=== PATIENT | male | born 1940 | race Caucasian/White ===

== ENCOUNTER 2016-02-24 16:19 | Inpatient (IN) | payer MEDICARE, OTHER ==
[~2016-02-24] VITALS: Ht 172.7 cm; Wt 69.3 kg
[2016-02-24] MEDS ORDERED: DEXTROSE 50% SYRINGE 50 ML IV PRN (20:30)
[2016-02-24] MEDS ORDERED: ACETAMINOPHEN 325 MG TAB PO PRN (20:30)
[2016-02-24] MEDS ORDERED: SALINE FLUSH 10 ML FLUSH PRN (20:30)
[2016-02-24] MEDS ORDERED: GLUCAGON 1 MG VIAL IM PRN (20:30)
[2016-02-24 22:30] VITALS: Ht 172.7 cm; Wt 69.3 kg
[2016-02-24 23:24] VITALS: BP_SYST 144; BP_SYST 145; RESP 16; RESP 18; TEMP 97.5
[2016-02-24] MEDS: Atorvastatin 20 MG TAB PO SCH (23:33)
[2016-02-25] VITALS (7 sets, daily range): BP systolic 137–160; RESP 16–18; TEMP 97.2–98.6
[2016-02-25] MEDS: SODIUM CHLORIDE 0.9% FLUSH BAG 500 ML IV SCH (06:00)
[2016-02-25] MEDS: SALINE FLUSH 10 ML FLUSH SCH ×2 (08:34→20:54)
[2016-02-25] MEDS ORDERED: Aspirin 325 MG TAB PO SCH (09:00)
[2016-02-25] MEDS ORDERED: NITROGLYCERIN SL 0.4 MG TAB SL SCH (17:00)
[2016-02-25] MEDS: LORAZEPAM 0.5 MG TAB PO SCH (21:00)
[2016-02-25] MEDS: DEXAMETHASONE 4 MG TAB PO SCH (21:01)
[2016-02-25] MEDS: depakote ER 250 MG TAB PO SCH (21:02)
[2016-02-25] MEDS: ISOSORBIDE MONO 30 MG TAB PO SCH (21:03)
[2016-02-25] MEDS: Atorvastatin 20 MG TAB PO SCH (21:03)
[2016-02-25] MEDS: ATENOLOL 25 MG TAB PO SCH (21:07)
[2016-02-26 03:18] VITALS: BP_SYST 124; RESP 16; TEMP 97.7
[2016-02-26] MEDS: SODIUM CHLORIDE 0.9% FLUSH BAG 500 ML IV SCH (06:00)
[2016-02-26 07:39] VITALS: BP_SYST 141; RESP 16; TEMP 97.5
[2016-02-26] MEDS: ATENOLOL 25 MG TAB PO SCH ×2 (09:00→21:15)
[2016-02-26] MEDS: DEXAMETHASONE 4 MG TAB PO SCH ×3 (09:14→21:14)
[2016-02-26] MEDS: ISOSORBIDE MONO 30 MG TAB PO SCH ×2 (09:14→21:14)
[2016-02-26] MEDS: SALINE FLUSH 10 ML FLUSH SCH ×2 (09:14→21:17)
[2016-02-26 11:16] VITALS: BP_SYST 126; RESP 16; TEMP 97.7
[2016-02-26 14:56] VITALS: BP_SYST 133; RESP 16; TEMP 98.4
[2016-02-26 19:50] VITALS: BP_SYST 138; RESP 16; TEMP 98.3
[2016-02-26] MEDS: LORAZEPAM 0.5 MG TAB PO SCH (21:14)
[2016-02-26] MEDS: depakote ER 250 MG TAB PO SCH (21:15)
[2016-02-26] MEDS: Atorvastatin 10 MG TAB PO SCH (21:17)
[2016-02-26 23:06] VITALS: BP_SYST 156; RESP 16; TEMP 98.6
[2016-02-27 04:02] VITALS: BP_SYST 142; RESP 16; TEMP 97.5
[2016-02-27] MEDS: SODIUM CHLORIDE 0.9% FLUSH BAG 500 ML IV SCH (05:27)
[2016-02-27 07:56] VITALS: BP_SYST 133; RESP 16; TEMP 97.3
[2016-02-27] MEDS: ATENOLOL 25 MG TAB PO SCH ×2 (08:45→20:04)
[2016-02-27] MEDS: SALINE FLUSH 10 ML FLUSH SCH ×2 (08:45→20:03)
[2016-02-27] MEDS: ISOSORBIDE MONO 30 MG TAB PO SCH ×2 (08:45→20:04)
[2016-02-27] MEDS: DEXAMETHASONE 4 MG TAB PO SCH ×2 (08:45→16:11)
[2016-02-27 12:44] VITALS: BP_SYST 151; RESP 16; TEMP 97.5
[2016-02-27 15:19] VITALS: BP_SYST 125; RESP 16; TEMP 97.2
[2016-02-27 19:44] VITALS: BP_SYST 130; RESP 20; TEMP 97.6
[2016-02-27] MEDS: Atorvastatin 10 MG TAB PO SCH (20:04)
[2016-02-27] MEDS: depakote ER 250 MG TAB PO SCH (20:04)
[2016-02-27] MEDS: LORAZEPAM 0.5 MG TAB PO SCH (20:04)
[2016-02-27] MEDS: DEXAMETHASONE 0.5 MG TAB PO SCH (20:07)
[2016-02-27 22:38] VITALS: BP_SYST 151; RESP 20; TEMP 97.6
[2016-02-28 03:03] VITALS: BP_SYST 157; RESP 16; TEMP 97.3
[2016-02-28] MEDS: SODIUM CHLORIDE 0.9% FLUSH BAG 500 ML IV SCH (05:42)
[2016-02-28 07:59] VITALS: BP_SYST 141; RESP 16; TEMP 97.5
[2016-02-28] MEDS: ATENOLOL 25 MG TAB PO SCH (09:18)
[2016-02-28] MEDS: SALINE FLUSH 10 ML FLUSH SCH (09:18)
[2016-02-28] MEDS: DEXAMETHASONE 0.5 MG TAB PO SCH (09:19)
[2016-02-28] MEDS: ISOSORBIDE MONO 30 MG TAB PO SCH (09:19)
[2016-02-28 10:00] VITALS: BP_SYST 141; RESP 16; TEMP 97.5
== END 2016-02-28 13:36 | disposition home or self-care (01) | DRG 87 ==
LOC: ENRESERVTM → ENRESERVDT → ER 16:19 → EMR 20:29 → PCU2 22:05 → OBSVTOIN 23:25 → ENPENDDIS 23:25
PROVIDERS: ADMIT Internal Medicine; ATTEND Internal Medicine
DX: S06.5X0A Traumatic subdural hemorrhage without loss of consciousness, initial encounter (principal); F03.90 Unspecified dementia, unspecified severity, without behavioral disturbance, psychotic disturbance, mood disturbance, and anxiety; W19.XXXA Unspecified fall, initial encounter; I10 Essential (primary) hypertension; I25.10 Atherosclerotic heart disease of native coronary artery without angina pectoris; Z86.73 Personal history of transient ischemic attack (TIA), and cerebral infarction without residual deficits; E78.00 Pure hypercholesterolemia, unspecified; Z79.82 Long term (current) use of aspirin
CPT/HCPCS: 36415; 70450; 70551; 71020; 80048; 80053; 80061; 81001; 82553; 82947; 83735; 84439; 84443; 84484; 85025; 85610; 93005; 93306; 93880